=== PATIENT | female | born 1990 | race Caucasian/White ===

== ENCOUNTER → 2019-06-19 13:26 | Outpatient (CLI) | payer OTHER, SELFPAY ==
--- NOTE | ~2019-06-19 | XR_ITS ---
XR ankle LT min 3V DATE: 06/19/2019 13:46 INDICATION: Twisted left ankle with evening. Pain and swelling. TECHNIQUE: 4 views COMPARISON: None FINDINGS: Generalized soft tissue swelling. There is slight plantar calcaneal enthesopathy. No fracture or dislocation of the ankle or disruption of the ankle mortise. No periosteal reaction or bone destruction. IMPRESSION: Generalized soft tissue swelling; no fracture or dislocation Slight calcaneal enthesopathy Reviewed, dictated and finalized at location B. IAC REHABILITATION SPECIALIST
== END ==
PROVIDERS: PCP Family Medicine; Visit Provider Family Medicine
DX: S93.402A Sprain of unspecified ligament of left ankle, initial encounter (principal); X58.XXXA Exposure to other specified factors, initial encounter; M77.32 Calcaneal spur, left foot
CPT/HCPCS: 73610

== ENCOUNTER 2021-05-18 20:57 | Emergency (ER) | payer OTHER, SELFPAY ==
--- NOTE | ~2021-05-18 | XR_ITS ---
EXAMINATION: XR ankle LT min 3V DATE: 05/18/2021 21:55 INDICATION: Left ankle injury and swelling. TECHNIQUE: 4 views of left ankle were obtained. COMPARISON: Left ankle radiographs 06/19/2019 FINDINGS: Bone alignment is normal. There is a chip fracture of lateral process of talus. There are c hip fractures distal to the fibula. Joint spaces are well maintained. There are enthesophytes at the posterior and plantar aspects of calcaneal tuberosity. There is ankle soft tissue swelling. IMPRESSION: 1. Chip fractures of distal fibula and lateral process of talus. Reviewed, dictated and finalized at location A. MENT WELDER
--- NOTE | ~2021-05-18 | XR_ITS ---
EXAMINATION: XR knee LT 3V DATE: 05/18/2021 21:55 INDICATION: Left knee injury and pain and swelling. TECHNIQUE: 3 views of left knee were obtained. COMPARISON: None. FINDINGS: There is an avulsion fracture of inferior pole of patella with 2.9 cm distraction. There is mild osteoarthritis of medial compartment characterized by tiny marginal osteophyte. No knee joint e ffusion. IMPRESSION: 1. Avulsion fracture of inferior pole of patella with 2.9 cm distraction. Reviewed, dictated and finalized at location A. NER PELTS
[2021-05-18 21:11] VITALS: BP 111/66; PULSE 80; RESP 16; TEMP 36.6; O2SAT 100
--- NOTE | 2021-05-18 21:40 | PC.NURSE ---
xray in room.
[2021-05-18] MEDS: MORPHINE SULFATE (*CRX) 4 MG/ML INJ IV PUSH (22:08)
--- NOTE | 2021-05-18 22:14 | ED.LOWEXIN ---
HPI - Extremity Injury (Lower) General Chief Complaint: Extremity Injury, Lower Stated Complaint: LEFT KNEE DISLOCATION?? Time Seen by Provider: 05/18/21 21:40 History of Present Illness HPI Narrative: Patient is a 31-year-old female who presents ER with left knee and ankle injury. Patient was going to block a volleyball shot and jumped. When she jumped she felt a pop in her left knee. She then collapsed to the ground after landing. Did not strike her head or lose consciousness. Unable to bear weight due to pain and having a floppy leg . No numbness or tingling. Has swelling to the left ankle and knee. Related Data Allergies Allergy/AdvReac Type Severity Reaction Status Date / Time No Known Allergies Allergy Verified 05/18/21 21:18 Review of Systems Review of Systems: All systems reviewed & are unremarkable except as noted in HPI and below Gastrointestinal: Gastrointestinal: Denies abdominal pain, Denies nausea and Denies vomiting Musculoskeletal: Musculoskeletal: Reports arthralgias, Reports joint swelling and Denies muscle cramps Neurologic: Denies syncope, Denies headache(s), Denies focal weakness and Denies numbness PMFSH Past Medical History Medical History Pilonidal abscess Pilonidal cyst Surgical History Surgical History [place] teeth extracted Family History Family History Mother Diabetes mellitus Hypertension Grandparent Diabetes mellitus Carcinoma of colon Other Family history of bipolar disorder Family history of mental disorder Social History Social History Smoking status: Never smoker Alcohol intake: current Exam Narrative: GENERAL: Well-appearing, well-nourished, and in no acute distress. HEAD: Normocephalic, atraumatic. CHEST: Clear to auscultation. No respiratory distress. HEART: Regular rate and rhythm. Normal peripheral pulses. EXTREMITIES: Left lower extremity swelling and tenderness of the knee with high riding patella. Patella tendon not intact this patient cannot maintain a straight leg at the knee. Patient also has swelling over the lateral ankle with tenderness along the joint line the tip of the fibula. Normal dorsalis pedis pulse. Normal sensation. Unremarkable exam of other extremities. SKIN: Warm, dry, no rash. NEURO: Alert and oriented x3. PSYCH: Normal mood and affect. Course Course Emergency Course: Discussed with Dr. Landeros. Knee immobilizer and crutches for home, and does not recommend any immobilization for the ankle. Patient aware of diagnosis and treatment plan. She has received morphine for pain. She'll be given [place] for home. Vital Signs Vital signs: Vital Signs Temperature 98 F 05/18/21 21:11 Pulse Rate 80 05/18/21 21:11 Respiratory Rate 16 05/18/21 21:11 Blood Pressure 111/66 05/18/21 21:11 Pulse Oximetry 100 05/18/21 21:11 Temperature 98 F 05/18/21 21:11 Pulse Rate 80 05/18/21 21:11 Respiratory Rate 16 05/18/21 21:11 Blood Pressure 111/66 05/18/21 21:11 Pulse Oximetry 100 05/18/21 21:11 MDM - Extremity Injury (Lower) Imaging Data Radiologist's impression: ITS Impressions Ankle X-Ray 05/18/21 21:57 IMPRESSION: 1. Chip fractures of distal fibula and lateral process of talus. Knee X-Ray 05/18/21 21:59 IMPRESSION: 1. Avulsion fracture of inferior pole of patella with 2.9 cm distraction. Discharge Plan Discharge Clinical Impression: Patellar tendon rupture, Avulsion fracture of left ankle Patient Disposition: Home, Self-Care Condition: Stable Instructions: Ankle Fracture (ED), Tendon Rupture (ED) Additional Instructions: Return to the ER if your leg/ankle becomes cold/blue, you lose feeling in your lower extremity, you suffer additional injury
== END 2021-05-18 22:53 | disposition home or self-care (01) ==
PROVIDERS: Emergency Provider Emergency Medicine; PCP Family Medicine
DX: S92.152A Displaced avulsion fracture (chip fracture) of left talus, initial encounter for closed fracture (principal); S82.832A Other fracture of upper and lower end of left fibula, initial encounter for closed fracture; S82.092A Other fracture of left patella, initial encounter for closed fracture; X50.9XXA Other and unspecified overexertion or strenuous movements or postures, initial encounter; Y93.68 Activity, volleyball (beach) (court)
CPT/HCPCS: 73562; 73610; 96374; 99284; J2270

== ENCOUNTER → 2021-05-20 01:30 | Outpatient (CLI) | payer OTHER, SELFPAY ==
[2021-05-20 13:23] LABS: SARS-CoV-2 RNA PCR Negative
== END ==
PROVIDERS: PCP Family Medicine; Visit Provider Orthopaedic Surgery
DX: Z01.812 Encounter for preprocedural laboratory examination (principal); Z20.822 Contact with and (suspected) exposure to COVID-19
CPT/HCPCS: C9803; U0003; U0005

== ENCOUNTER 2021-05-21 01:43 | Day surgery (SDC) | payer OTHER, SELFPAY ==
[2021-05-20 08:09] VITALS: BMI 38.2
--- NOTE | 2021-05-20 08:28 | PC.NURSE ---
Report to the Outpatient Waiting Room, entrance under the green pavilion located off [facility], at time ____729___ on date __05/21/21 . OR Time: . - You and your visitor will be asked a series of questions to screen for COVID 19 for your protection. - A mask is required within the hospital. - Only one visitor is allowed at this time. Patient visitors will be guided where to wait when not with patient. Preoperative COVID Testing Requirements: No COVID Test needed if: (proof is required; if not received patient will have Rapid Test prior to entry) - Patient has received COVID Vaccine at least 14 days prior to procedure date or - Patient has positive COVID test result within last 90 days of surgery date. COVID Test needed if above criteria is not met COVID TEST 05/20/21929 If not COVID vaccinated a COVID test must be conducted within 72 hours of surgery and patient is asked to isolate self from time of testing until procedure. You will go to the [facility] for your COVID testing. The [facility] site is located at the corner of [address] [facility]. You will only be called if COVID results are positive and your surgeon may reschedule your elective surgery date. Patients may have clear liquids (water, carbonated beverages, clear teas, apple juice) until 3 hours prior to surgery with a maximum of 20 ounces. - No food from midnight until time of surgery - Infants may have breast milk until 4 hours before surgery, infant formula 6 hours prior to surgery. - Children will be allowed to drink immediately following surgery. If applicable, please bring a bottle or sippy cup to assist with drinking. Juice, water, soda, and popsicles are readily available. For infants on formula, please bring formula the day of surgery. Pacifiers are allowed. Take the following medications with a SIP of water the morning of surgery: HYDROCODONE NEEDED Medications to discontinue per physician NONE Date to take last dose Please no make-up, nail bulgarian, hairspray, perfume, deodorant, or body powder the day of surgery. No jewelry (including any body piercings) or valuables the day of surgery, leave them at home. Please take a shower or bath the night before, or the morning of, surgery with an antibacterial soap. Wear comfortable, loose fitting clothing. Children are encouraged to wear pajamas. - Jewelry must be removed prior to entering the operating room. Rings and piercings that are not removed may be cut off. - The hospital will not accept responsibility for valuables. - Please leave all valuables, including medications, at home the day of surgery. If you are going home after surgery, a licensed cattle driver must drive you home. - NO public transportation without another adult. - We recommend that an adult stay with you for 24 hours following discharge. - We also recommend that you do not drive, make important decision, drink alcoholic beverages, or take any drugs that were not prescribed by your health care provider for at least 24 hours after your discharge time. For Pediatric surgeries, we recommend two adults accompany the child home (only one inside the building at this time). Follow any additional instructions given to you from your surgeon. Telephone instructions given to ___PATIENT and asked if any additional questions and then verbalized understanding. Patient advised to call surgeon office or pre surgery nurse liaison [phone] if any additional questions.
[2021-05-21] VITALS (9 sets, daily range): BP systolic 101–121; BP diastolic 52–65; PULSE 53–70; RESP 13–22; TEMP 36.4; O2SAT 99–100
--- NOTE | 2021-05-21 07:17 | WPDHPUPDATE1 ---
History and Physical Update Update Date/Time: 05/21/21 07:17 History and Physical has been reviewed, including an updated exam of the patient. There are NO changes in the patient's condition. Risks, benefits, and alternatives have been discussed and questions answered. Patient agrees to proceed with procedure.
[2021-05-21] MEDS: ACETAMINOPHEN 500 MG TABLET 1000 MG PO (07:52)
--- NOTE | 2021-05-21 08:02 | P.PNAN_ITS ---
Anes - Initial Pre Proc Eval Procedure: Operation Date: 05/21/21 09:30 Proposed Procedures p Left Knee Patellar Tendon Reconstruction - Danny Landeros MD Date/Time: 05/21/21 08:02 Surgeon: Danny Landeros MD Pre Op Diagnosis: left knee patellar tendon rupture Patient Data Age: 31 Gender: F Height: 1.78 m Weight: 125.7 kg Last Vital Signs Temp 36.4 C L 05/21/21 07:58 Pulse 70 05/21/21 07:58 Resp 16 05/21/21 07:58 BP 121/64 05/21/21 07:58 Pulse Ox 99 05/21/21 07:58 Allergies Allergy/AdvReac Type Severity Reaction Status Date / Time No Known Allergies Allergy Verified 05/21/21 07:49 Home Medications Medication Instructions Recorded Confirmed Type diazepam 5 mg tablet 5 mg PO TID PRN #20 tablet 05/20/21 05/20/21 Rx ibuprofen 800 mg tablet 800 mg PO TID PRN #60 tablet 05/20/21 05/20/21 Rx ondansetron 8 mg disintegrating 8 mg PO Q6-8H PRN #10 tablet 05/20/21 05/20/21 Rx tablet oxycodone-acetaminophen 7.5 mg-325 1 tablet PO Q4H PRN #30 tablet 05/20/21 05/20/21 Rx mg tablet sennosides 8.6 mg-docusate sodium 1 tab-cap PO QHS #20 tablet 05/20/21 05/20/21 Rx 50 mg tablet Patient hx anesthesia problems: none Family hx anesthesia problems: none Results Review: All pre-operative results and documents have been reviewed as part of the pre-operative evaluation. [facility] Past Medical History Medical History Depression Pilonidal abscess Pilonidal cyst Surgical History Surgical History [place] teeth extracted Family History Family History Mother Diabetes mellitus Hypertension Grandparent Diabetes mellitus Carcinoma of colon Other Arthritis Depression Family history of bipolar disorder Family history of mental disorder Stomach cancer Social History Social History Smoking status: Never smoker Alcohol intake: current Substance use: never Substance use type: does not use Living arrangements: with family Additional living arrangements comments: [facility] 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[employer] Gender identity (if verbalized by the patient): Female Spiritual care concerns: No Anes - Eval Final PreProcedure Day of Procedure 05/21/21 08:02 Patient weight: obese Heart: regular rate and rhythm Lungs: clear to auscultation and normal air movement Airway: Mallampati scale class II Neurological: alert and oriented Last oral intake: >/= 8 hours ASA classification: II Emergent: no Anesthetic plan: proceed Anesthesia type and monitoring: general LMA Results Review: All pre-operative results and documents have been reviewed as part of the pre-operative evaluation. Informed Consent: The patient's anesthetic plan and its attendant risks and benefits were discussed with the patient/family/POA. Questions were solicited and answers provided to the satisfaction of the patient/family/POA.
[2021-05-21] MEDS: KETOROLAC 15 MG/ML VIAL (*BKC) IV PUSH (08:13)
[2021-05-21] MEDS: LACTATED RINGERS 1,000 ML 30 ML IV CONT ×2 (08:13→11:23)
--- NOTE | 2021-05-21 09:12 | WPDANESEFPP ---
Anes - Eval Final PreProcedure Day of Procedure 05/21/21 09:12 Patient weight: obese Heart: regular rate and rhythm Lungs: clear to auscultation Airway: Mallampati scale class II Neurological: alert and oriented Last oral intake: >/= 8 hours ASA classification: II Emergent: no Anesthetic plan: proceed Anesthesia type and monitoring: general LMA and standard monitoring Results Review: All pre-operative results and documents have been reviewed as part of the pre-operative evaluation. Informed Consent: The patient's anesthetic plan and its attendant risks and benefits were discussed with the patient/family/POA. Questions were solicited and answers provided to the satisfaction of the patient/family/POA.
[2021-05-21] MEDS: ceFAZolin 3 GM/D5W 100 ML 100 ML IVPB (09:28)
[2021-05-21] MEDS: BUPIVACAINE HCL 0.5% PF 30 ML VIAL INFILTRATE (10:00)
--- NOTE | 2021-05-21 11:30 | P.OP_ITS ---
Procedure Note - Detailed Date of Procedure 05/21/21 Pre-op Diagnosis left knee patellar tendon rupture Post-op Diagnosis same Procedure Performed Secondary reconstruction left knee patellar tendon Surgeon Danny Landeros MD Sports Editor 1st assistant professor of forestry Anesthesia general Indications 31-year-old woman injured left knee well playing volleyball. Radiographs and exam show patellar tendon rupture. Patient presents for operative treatment. Findings Complete rupture of the infrapatellar tendon with mild involvement of the medial and lateral retinaculum. Description of Procedure What was done: Patient identified in the preoperative holding. Informed consent given. Operative extremity marked. Patient received intravenous antibiotics. Patient brought to the operating room where underwent general anesthetic by anesthesia team. Positioned supine on operating room table. Time-out performed confirming the patient, site of the surgery and the plan. Left knee prepped and draped usual sterile surgical fashion using ChloraPrep skin solution. Knee exsanguinated and the thigh tourniquet inflated to 300 mmHg. Local anesthetic with 0.5% Marcaine plain. Direct midline anterior incision made with a 10 blade knife over the patellar tendon. Hemostasis controlled electrocautery. Fascia and retinaculum incised in line with skin incision. Complete rupture of the patellar tendon noted with disruption and fraying of the ligaments substance. Hematoma evacuated from the knee joint. Knee joint thoroughly irrigated. Repair of the patellar tendon then performed. Two 4.75 mm swivel lock anchors placed inferior patellar pole. This suture was then taken through ligament. Ligament repaired up to the patella. Suture limbs were then placed into a central swivel lock at the tibial tubercle. Two suture strands form the more medial anchor used. One suture strands from the lateral anchor to equal 6 strands of suture. Secondary repair was then performed with internal brace. A medial and lateral infrapatellar swivel lock was placed with the 4.75 mm. This suture was then taken through the retinaculum and repair distally to the tibia with a 4.75 mm swivel lock with the knee in 30? of flexion. Wound thoroughly irrigated and the tendon ends were approximated with 0 Vicryl interrupted suture. Fascia then repaired with 0 Vicryl interrupted suture. Subcutaneous tissue repaired with 2-0 Vicryl interrupted suture. Skin approximated with 3-0 Monocryl running subcuticular Quill stitch. Tourniquet released. Sterile dressing applied. The patient was then woken from anesthesia, extubated and taken to the recovery room in stable condition. All sponge, needle, instrument counts were correct at the end of the case. Implants Arthrex 4.75 mm swivel lock anchors x5 Estimated Blood Loss -20.0 Tourniquet Time 90 Drains No Packing No Pathology none sent Complications None Condition stable Disposition PACU
[2021-05-21] MEDS: fentaNYL CITRATE INJ (*CRX) 100 MCG/2 ML VIAL 25 MCG IV PUSH ×2 (11:40→12:04)
[2021-05-21] MEDS: oxyCODONE HCL (*CRX) 5 MG TAB IR PO (12:45)
== END 2021-05-21 13:55 | disposition home or self-care (01) ==
PROVIDERS: PCP Family Medicine; Visit Provider Orthopaedic Surgery
PROC: (CPT 27380; principal; 2021-05-21 09:30)
DX: S86.812A Strain of other muscle(s) and tendon(s) at lower leg level, left leg, initial encounter (principal); X50.0XXA Overexertion from strenuous movement or load, initial encounter; Y93.68 Activity, volleyball (beach) (court); F32.9 Major depressive disorder, single episode, unspecified; E66.9 Obesity, unspecified; Z68.39 Body mass index [BMI] 39.0-39.9, adult
CPT/HCPCS: 27381; A9270; C1713; C9803; J0690; J1100; J1885; J2250; J2405; J2704; J3010; J7120; U0003; U0005

== ENCOUNTER 2021-09-06 08:39 | Emergency (ER) | payer OTHER, SELFPAY ==
--- NOTE | 2021-09-06 08:42 | ED.URI ---
HPI - URI/Sore Throat General Chief Complaint: Upper Respiratory Infection Stated Complaint: sore throat Time Seen by Provider: 09/06/21 08:41 Source: patient Mode of arrival: ambulatory Limitations: no limitations History of Present Illness HPI Narrative: Ms. Bee is a 31-year-old female patient presenting to the clinic today with complaints of sore throat. She reports she has had sore throat for 1 to 2 days. She denies any known fever. Reports that her tonsils are very swollen with white exudate. She denies any nasal drainage or cough. MD elicited complaint: sore throat and nasal congestion Related Data Allergies Allergy/AdvReac Type Severity Reaction Status Date / Time No Known Allergies Allergy Verified 09/06/21 08:54 Review of Systems Review of Systems: Pertinent positives per HPI. Patient denies any fever, chills, rash, headache, visual changes, dizziness, cough, shortness of breath, chest pain, palpitations, nausea, vomiting, diarrhea, constipation, abdominal pain, or any urinary issues. [facility] Past Medical History Medical History Depression Encounter for postoperative care Pilonidal abscess Pilonidal cyst Surgical History Surgical History [place] teeth extracted Family History Family History Mother Diabetes mellitus Hypertension Grandparent Diabetes mellitus Carcinoma of colon Other Arthritis Depression Family history of bipolar disorder Family history of mental disorder Stomach cancer Social History Social History Alcohol intake: current Substance use: never Substance use type: does not use Additional living arrangements comments: [facility] 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 There is no relevant family history pertinent to the patient complaint. Exam Narrative: General: Well-developed, morbidly obese, in no apparent distress Head: Normocephalic, atraumatic Eyes: Pupils equally round and reactive to light bilaterally, EOM intact, sclera and conjunctive clear, no discharge, lids normal Ears: TMs intact and clear, ear canals clear, no drainage, grossly hearing normal. Nose: Nares patent, no discharge, no inflammation, no sinus tenderness. Mouth: Oral pharynx without lesions or masses, good dentition, MMM. 2+ tonsillar enlargement with white exudate Neck: Supple, trachea midline, positive enlargement of anterior cervical nodes, no thyroid masses or goiter palpable. Cardio: Regular rate and rhythm, s1 and s2 normal, no murmur appreciated. Resp: Clear to auscultation bilaterally, no rhonchi, rales, wheezing or rubs Course Course Emergency Course: Portions of this record may have been created with voice recognition software. Level of Care: Express Care Visit Vital Signs Vital signs: Vital signs reviewed MDM - URI/Sore Throat MDM Narrative Medical decision making narrative: At the time of visit patient is resting comfortably on the exam table. Strep screen was negative in the clinic. I will go ahead and treat her empirically for strep pharyngitis due to Centor criteria being 3 out of 4. Prescriptions for amoxicillin was sent to her pharmacy. Supportive measures were discussed with patient she voiced understanding of treatment plan and discharge instructions. Differential Diagnosis Differential diagnosis: Likely upper respiratory infection, croup, otitis media, sinusitis, viral infection, bronchitis, influenza and pharyngitis Discharge Plan Discharge Clinical Impression: Exudativ
[2021-09-06 08:46] VITALS: BP 129/75; PULSE 75; RESP 16; TEMP 36.5; O2SAT 99
== END 2021-09-06 09:10 | disposition home or self-care (01) ==
PROVIDERS: Emergency Provider Nurse Practitioner Family; PCP Family Medicine
DX: J02.9 Acute pharyngitis, unspecified (principal)
CPT/HCPCS: 87081; 87880; 99213; G0463

== ENCOUNTER 2022-04-27 08:13 | Emergency (ER) | payer OTHER, SELFPAY ==
[2022-04-27 08:29] VITALS: BP 127/81; PULSE 85; RESP 16; TEMP 36.1; O2SAT 99
--- NOTE | 2022-04-27 08:48 | ED.URI ---
HPI - URI/Sore Throat General Chief Complaint: Upper Respiratory Infection Stated Complaint: Stiff neck Time Seen by Provider: 04/27/22 08:40 History of Present Illness HPI Narrative: 32-year-old female presented for complaint neck pain for 6 days associated headache. She also endorses mild throat pain. She endorses having a history of strep infections but states this does not feel quite as bad. She denies nausea, vomiting, dizziness, tinnitus, fevers or chills. She denies extremity weakness, numbness or tingling. She has taken Tylenol and ibuprofen without significant change. She denies injury to her neck. Denies sick contacts. Related Data Allergies Allergy/AdvReac Type Severity Reaction Status Date / Time No Known Allergies Allergy Verified 04/27/22 08:38 Review of Systems Review of Systems: CONSTITUTIONAL: Denies body aches, fever, chills, or sweats. EYES: Denies visual changes, redness, or discharge. ENT: Denies rhinorrhea, congestion, or otalgia. CARDIOVASCULAR: Denies chest pain, palpitations, or edema. RESPIRATORY: Denies dyspnea. GASTROINTESTINAL: Denies abdominal pain, nausea, vomiting, or diarrhea. SKIN: Denies rash, itching, or wounds. MUSCULOSKELETAL: Denies back pain, joint pain, or myalgia. NEUROLOGIC: Denies headache PMFSH Past Medical History Medical History Depression Encounter for postoperative care Pilonidal abscess Pilonidal cyst Surgical History Surgical History [place] teeth extracted Family History Family History Mother Diabetes mellitus Hypertension Grandparent Diabetes mellitus Carcinoma of colon Other Arthritis Depression Family history of bipolar disorder Family history of mental disorder Stomach cancer Social History Social History Smoking status: Never smoker Alcohol intake: current Substance use: never Substance use type: does not use Additional living arrangements comments: [facility] [place] 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 EYES: conjunctivae clear ENT: Mucous membranes moist. TMs pearly bynum with normal light reflex bilaterally; no tragal tenderness. Oropharynx erythematous Tonsils enlarged 2+ without exudate. No drooling, no hoarseness, no trismus, uvula midline. No tripod positioning, hot potato voice, or soft palate swelling. NECK: Supple. No lymphadenopathy; Decreased ROM in all directions, no VPT. CHEST: Clear to auscultation, breath sounds equal. No respiratory distress, speaks in full sentences. HEART: Regular rate and rhythm. No murmur heard. SKIN: Warm, dry, no rash. MUSC: full ROM to upper extremities. NEURO: Alert and oriented x3. Course Course Emergency Course: Patient is aware of diagnosis, understands and agrees to treatment plan. Anticipatory guidance given. Patient agrees to follow-up as directed and is aware of reasons to seek care at the emergency department. Portions of this record may have been created with voice recognition software Level of Care: Express Care Visit Vital Signs Vital signs: Vital Signs Temperature 97.0 F L 04/27/22 08:29 Pulse Rate 85 04/27/22 08:29 Respiratory Rate 16 04/27/22 08:29 Blood Pressure 127/81 04/27/22 08:29 Pulse Oximetry 99 04/27/22 08:29 Oxygen Delivery Room Air 04/27/22 08:29 Temperature 97.0 F L 04/27/22 08:29 Pulse Rate 85 04/27/22 08:29 Respiratory Rate 16 04/27/22 08:29 Blood Pressure 127/81 04/27/22 08:29 Pulse Oximetry 99 04/27/22 08:29 Oxygen Delivery Room Air 04/27/22 08:29 MDM - URI/Sore Throat MDM Narrative Medical dec
== END 2022-04-27 09:02 | disposition home or self-care (01) ==
PROVIDERS: Emergency Provider Nurse Practitioner Family; PCP Family Medicine
DX: M54.2 Cervicalgia (principal); J02.9 Acute pharyngitis, unspecified
CPT/HCPCS: 87081; 99213; G0463

== ENCOUNTER 2024-04-25 01:54 | Emergency (ER) | payer OTHER, SELFPAY ==
--- NOTE | ~2024-04-25 | XR_ITS ---
EXAMINATION: XR chest 2V DATE: 04/25/2024 03:19 INDICATION: Cough. TECHNIQUE: Frontal and lateral views of the chest were obtained. COMPARISON: None. FINDINGS: There is no pneumonia, pleural effusion, or pneumothorax. The heart size is normal. IMPRESSION: 1. No acute cardiopulmonary disease. Reviewed, dictated and finalized at location A. [facility]
[2024-04-25 01:55] VITALS: BP 133/78; PULSE 75; RESP 16; TEMP 36.4; O2SAT 98
[2024-04-25] MEDS: SODIUM CHLORIDE 0.9% IV 1,000 ML 999 ML IV CONT (03:30)
--- NOTE | 2024-04-25 03:37 | ED_ITS ---
HPI - General Adult General Chief complaint: Upper Respiratory Infection Stated complaint: pneumonia-been coughing three weeks Time Seen by Provider: 04/25/24 03:04 Source: patient Mode of arrival: ambulatory Limitations: no limitations History of Present Illness HPI narrative: Pt is a 34 yo female presenting for evaluation of cough. Pt reports a five day history of dry cough without improvement with over the counter medications. She denies chest pain. No recent sick contacts. Patient reports achiness and myalgias on Tuesday with fever 102F, but afebrile since that time. She denies chest pain, pleuritic pain, dyspnea. Patient without history of asthma, does have a history of bronchitis. She denies headache, sore throat. Reports mild congestion. No sinus pain per patient. Related Data Allergies Allergy/AdvReac Type Severity Reaction Status Date / Time No Known Allergies Allergy Verified 07/15/22 10:00 Review of Systems 2 Constitutional: Constitutional: Reports as per [facility] Past Medical History Medical History Encounter for postoperative care Depression Pilonidal cyst Pilonidal abscess Surgical History Surgical History [place] teeth extracted Family History Family History Mother Diabetes mellitus Hypertension Grandparent Diabetes mellitus Carcinoma of colon Other Arthritis Depression Family history of bipolar disorder Family history of mental disorder Stomach cancer Social History Social History Smoking status: Never smoker Alcohol intake: current Substance use: never Substance use type: does not use Living arrangements: with family Additional living arrangements comments: [facility] Occupation/Education: occupation 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 [employer] Gender identity (if verbalized by the patient): Female Spiritual care concerns: No Exam 2 Const: General: healthy appearing and no acute distress Nutritional Appearance: well nourished Orientation/consciousness: patient oriented x3 Limitations: no limitations HENMT: Head: normal to inspection Face/Nose/Sinus: Normal external nose present Mouth: Yes Normal oral and palatal mucosa present Eyes: Conjunctivae: conjunctivae normal Pupils: Equal, round and reactive pupils present Neck: Neck: normal visual inspection Chest: Chest palpation & inspection: normal inspection of the chest Resp: Effort & Inspection: normal respiratory effort Auscultation: clear to auscultation bilaterally Other: No wheezing, rhonchi or rales Cardio: Rate: regular rate Rhythm: regular rhythm GI: GI Palp: Yes Soft to palpation Skin: General skin exam: normal color Rashes: no rashes Neuro: General: patient oriented x3 Extrem: General: normal to inspection Psych: Mental Status: mental status grossly normal Affect: normal affect Course Vital Signs Vital signs: Vital Signs Temperature 36.4 C L 04/25/24 01:55 Pulse Rate 75 04/25/24 01:55 Respiratory Rate 16 04/25/24 01:55 Blood Pressure 133/78 04/25/24 01:55 Pulse Oximetry 98 04/25/24 01:55 Temperature 36.4 C L 04/25/24 01:55 Pulse Rate 75 04/25/24 01:55 Respiratory Rate 16 04/25/24 01:55 Blood Pressure 133/78 04/25/24 01:55 Pulse Oximetry 98 04/25/24 01:55 Medical Decision Making MDM Narrative Medical decision making narrative: Patient with CXR that is concerning for patchy infiltration, no consolidation with concern for atypical pneumonia or viral URI. Given high rates of mycoplasma, plan to treat with doxycyline as pt with medication interaction for azithromycin. Other labs reassuring as well as vital signs. Pt then discharged home. Differential Diagnosis Differential Diagnosis: Pneumonia, Viral infection, Atypical pneumonia Vital Signs Vital Signs: Vital Signs Temperature 36.4 C L 04/25/24 01:55 Pulse Rate 75 04/25/24 01:55 Respiratory Rate 16 04/25/24 01:55 Blood Pressure 133/78 04/25/24 01:55 Pulse Oximetry 98 04/25/24 01:55 Temperature 36.4 C L 04/25/24 01:55 Pulse Rate 75 04/25/24 01:55 Respiratory Rate 16 04/25/24 01:55 Blood Pressure 133/78 04/25/24 01:55 Pulse Oximetry 98 04/25/24 01:55 Lab Data Lab results reviewed: Yes I reviewed the patient's lab results. 04/25/24 03:32 04/25/24 03:32 Labs: Lab Results 04/25/24 Range/Units 03:32 WBC 7.3 (4.5-10.0) K/mm3 RBC 5.02 (4.2-5.4) M/mm3 Hgb 13.7 (12.0-15.0) g/dL Hct 40.9 (37.0-47.0) % MCV 81.5 (80-100) fl MCH 27.3 (26-34) pg MCHC 33.5 (32-36) g/dl RDW 12.5 (11.5-14.5) % Plt Count 293 (150-375) k/mm3 MPV 9.3 (7.4-10.4) fl Immature Gran % (Auto) 0.4 (0-0.5) % Neut % (Auto) 48.4 (45.5-73.1) % Lymph % (Auto) 39.3 (18.3-44.2) % [place] % (Auto) 10.7 H (2.6-8.5) % Eos % (Auto) 0.6 (0-4.4) % Baso % (Auto) 0.6 (0.2-1.2) % Lymph # (Auto) 2.86 (0.9-3.2) K/mm3 [place] # (Auto) 0.8 H (0.1-0.6) K/mm3 Eos # (Auto) 0.0 (0-0.3) K/mm3 Baso # (Auto) 0.0 (0.0-0.1) K/mm3 Abs Immat Gran (auto) 0.03 (0.00-0.031) K/mm3 Absolute Neuts (auto) 3.5 (1.3-6.7) K/mm3 Absolute Nucleated RBC 0.000 (0.0-0.012) K/mm3 Nucleated RBC % 0.0 (0.0-0.2) % Sodium 139 (137-145) mmol/L Potassium 3.6 (3.4-5.0) mmol/L Chloride 107 (98-107) mmol/L Carbon Dioxide 25 (22-30) mmol/L Anion Gap 7 (4-12) mmol/L BUN 8 (7-17) mg/dL Creatinine 0.70 (0.7-1.0) mg/dL Estim Creat Clear Calc 137 ml/min Estimated GFR > 60 (59 - ) Glucose 112 H (65-110) mg/dL Calcium 9.2 (8.4-10.2) mg/dL Total Bilirubin 0.3 (0.2-1.3) mg/dL AST 34 (14-36) U/L ALT 27 (6-35) U/L Alkaline Phosphatase 82 (38-126) U/L Troponin I < 0.012 (0.000-0.034) ng/mL Total Protein 8.0 (6.3-8.2) g/dL Albumin 4.4 (3.5-5.1) g/dL ECG Data EKG #1: Attestation: I personally reviewed and interpreted this ECG as follows: ECG completion date: 04/25/24 ECG completion time: 04:17 Interpretation: Rate 61, normal sinus rhythm, ID interval normal. QS narrow, QTc normal EKG Interpretation: normal rate Discharge Plan Discharge Clinical Impression: Atypical pneumonia, Cough Patient Disposition: Home, Self-Care Condition: Stable Instructions: Pneumonia (ED) Additional Instructions: Your chest x ray was reassuring, but due to high rates of atypical pneumonia, this will be treated with oral antibiotics. Please take in full and do not miss any doses. Your other lab work was normal. Please follow up with your PCP in 10 days if no improvement. Patient Language: Bengali Prescriptions: New acetaminophen 500 mg capsule 500 mg PO Q6H PRN (Reason: fever or pain) Qty: 30 0RF doxycycline hyclate 100 mg capsule 100 mg PO Q12H 10 Days Qty: 20 0RF No Action escitalopram oxalate 10 mg tablet See Rx Instructions PO DAILY Qty: 60 3RF Rx Instructions: orally daily; start 1 q day x 2 weeks then increase to 2 q day Follow-up/Referrals: Sanjuana Butts MD [Primary Care Provider] -
[2024-04-25 03:40] LABS: Basophils Percent Auto 0.6 % (0.2-1.2); Eosinophils Percent Auto 0.6 % (0-4.4); Hematocrit 40.9 % (37.0-47.0); Hemoglobin 13.7 g/dL (12.0-15.0); Immature Granulocyte Absolute 0.03 K/mm3 (0.00-0.031); Immature Granulocyte Percent A 0.4 % (0-0.5); Lymphocytes Absolute Auto 2.86 K/mm3 (0.9-3.2); Lymphocytes Percent Auto 39.3 % (18.3-44.2); Mean Corpuscular HGB Conc 33.5 g/dl (32-36); Mean Corpuscular Hemoglobin 27.3 pg (26-34); Mean Corpuscular Volume 81.5 fl (80-100); Mean Platelet Volume 9.3 fl (7.4-10.4); Monocytes Absolute Auto 0.8 K/mm3 (0.1-0.6); Monocytes Percent Auto 10.7 % (2.6-8.5); Neutrophils Absolute Auto 3.5 K/mm3 (1.3-6.7); Neutrophils Percent Auto 48.4 % (45.5-73.1); Platelet Count Result 293 k/mm3 (150-375); Red Blood Count 5.02 M/mm3 (4.2-5.4); Red Cell Distribution Width 12.5 % (11.5-14.5); White Blood Count 7.3 K/mm3 (4.5-10.0)
[2024-04-25] MEDS: ACETAMINOPHEN 500 MG TABLET 1000 MG PO (03:46)
[2024-04-25] MEDS: AZITHROMYCIN 250 MG TABLET 500 MG PO (03:47)
[2024-04-25] MEDS: predniSONE 20 MG TABLET 60 MG PO (03:48)
[2024-04-25 03:54] LABS: Alanine Aminotransferase 27 U/L (6-35); Albumin Level 4.4 g/dL (3.5-5.1); Alkaline Phosphatase 82 U/L (38-126); Anion Gap 7 mmol/L (4-12); Aspartate Amino Transferase 34 U/L (14-36); Bilirubin,Total 0.3 mg/dL (0.2-1.3); Blood Urea Nitrogen 8 mg/dL (7-17); Calcium 9.2 mg/dL (8.4-10.2); Carbon Dioxide 25 mmol/L (22-30); Chloride 107 mmol/L (98-107); Estimated CRCL calculation 137 ml/min; Estimated Glomerular Filt Rate > 60; Glucose 112 mg/dL (65-110); Potassium 3.6 mmol/L (3.4-5.0); Sodium 139 mmol/L (137-145)
--- NOTE | 2024-04-25 03:59 | ECG_ITS ---
Test Date: 2024-04-25 04:17:31 Measurements Intervals [place] Rate: 61 P: 48 OK: 146 QRS: 53 QRSD: 102 T: 9 QT: 429 QTc: 434 Interpretive Statements SINUS RHYTHM No previous ECG available for comparison Electronically Signed On 04-25-2024 13:40:40 OCCUPATIONAL THERAPY ASSIST by Tatiana Bah M.D.
[2024-04-25 04:23] LABS: Troponin I < 0.012 ng/mL (0.000-0.034)
[2024-04-25 04:30] LABS: Influenza A QL RT-PCR Positive (Negative); Influenza B QL RT-PCR Negative (Negative); SARS-CoV-2 RNA PCR Negative (Negative)
[2024-04-25 05:14] VITALS: BP 124/86; PULSE 74; RESP 17; O2SAT 99
--- OUTSIDE RECORDS SUMMARY | 2024-05-02 02:51 | XMS_ITS | Patient Health Summary ---
Author Organization [facility] Address [address] [place] [address] Care Team Providers Care Pharmacy Salesperson Name Role Phone Unavailable Primary Care Provider Unavailabl e Note from [facility],non-owned Affiliates and Associated Physician Practices is amultiple site organization consisting of ambulatory clinics and hospital sitesin [place], [place], [place] and [place]. This disclosure is being madepursuant to the Care Everywhere program and may not contain all information available regarding this patient. Last updated 18.[facility] [employer] Social History Tobacco Use Types Packs/Day Years Used Date Smoking Tobacco: Never Assessed Sex and Gender Information Value Date Recorded Sex Assigned at Not on file Gender Identity Not on file Sexual Orientation Not on file
--- OUTSIDE RECORDS SUMMARY | 2024-05-02 02:51 | XMS_ITS | Clinical Summary ---
Author Organization [facility] Address [address] [place] [address] Care Team Providers Care Video Game Animator Name Role Phone Unavailable Primary Care Provider Unavailabl e Source Comments [facility],non-owned Affiliates and Associated Physician Practices is amultiple site organization consisting of ambulatory clinics and hospital sitesin [place], [place], [place] and [place]. This disclosure is being madepursuant to the Care Everywhere program and may not contain all information available regarding this patient. Last updated 18.[facility] [employer] Social History Tobacco Use Types Packs/Day Years Used Date Smoking Tobacco: Never Assessed Sex and Gender Information Value Date Recorded Sex Assigned at Not on file Gender Identity Not on file Sexual Orientation Not on file Plan of Treatment Health Maintenance Due Date Last Done Comments PAP SMEAR 1988 HIV SCREENING 2003 HEPATITIS C SCREENING 03/08/2006 DTAP/TDAP/TD VACCINES (1 - Tdap) 2007 HEPATITIS B VACCINE (1 of 3 - 19+ 3-dose series) 2007 DEPRESSION SCREENING 05/02/2023 COVID-19 VACCINE (1 - 2023-2 5 season) 2024 INFLUENZA VACCINE (#1) 2024 ZOSTER VACCINE (1 of 2) 2038 HIB VACCINE Aged Out No longer eligi ble based on patient's age to complete this topic HPV VACCINE Aged Out No longer eligi ble based on patient's age to complete this topic MENINGOCOCCAL VACCINE Aged Out No aundrea morris eligible based on patient's age to complete this topic PNEUMOCOCCAL VACCINE Aged Out No long er eligible based on patient's age to complete this topic
--- OUTSIDE RECORDS SUMMARY | 2024-05-02 02:51 | XMS_ITS | Encounter Summary ---
Author Organization [facility] Address [address] [place] [address] Care Team Providers Care Rubber Off Name Role Phone Unavailable Primary Care Provider Unavailabl e Encounter Details Date Type Department Care Team (Latest Contact Info) Description 12/12/2020 Travel Social History Tobacco Use Types Packs/Day Years Used Date Smoking Tobacco: Never Assessed Sex and Gender Information Value Date Recorded Sex Assigned at Not on file Gender Identity Not on file Sexual Orientation Not on file COVID-19 Exposure Response Date Recorded In the last month, have you been in contact with someone who was confirmed or suspected to have Coronavirus / COVID-19? No / Unsure 12/12/2020 1:43 PM CDT documented as of this encounter Plan of Treatment Not on file documented as of this encounter Visit Diagnoses Not on filedocumented in this encounter
--- OUTSIDE RECORDS SUMMARY | 2024-05-02 02:51 | XMS_ITS | Referral Summary ---
Author Organization [facility] Address [address] [place] [address] Care Team Providers Care Aquatics Manager Name Role Phone Unavailable Primary Care Provider Unavailabl e Source Comments [facility],non-owned Affiliates and Associated Physician Practices is amultiple site organization consisting of ambulatory clinics and hospital sitesin [place], [place], [place] and [place]. This disclosure is being madepursuant to the Care Everywhere program and may not contain all information available regarding this patient. Last updated 18.[facility] [employer] Social History Tobacco Use Types Packs/Day Years Used Date Smoking Tobacco: Never Assessed Sex and Gender Information Value Date Recorded Sex Assigned at Not on file Gender Identity Not on file Sexual Orientation Not on file Plan of Treatment Not on file
--- OUTSIDE RECORDS SUMMARY | 2024-05-02 03:35 | XMS_ITS | Encounter Summary ---
Author Organization [facility] Address [address] [place] [address] Care Team Providers Care Hand Blocker Name Role Phone Unavailable Primary Care Provider [...]
--- OUTSIDE RECORDS SUMMARY | 2024-05-02 03:35 | XMS_ITS | Clinical Summary ---
Author Organization [facility] Address [address] [place] [address] Care Team Providers Care Creative Services Coordinator Name Role Phone Unavailable Primary Care Provider Unavailabl e Source Comments [facility],non-owned Affiliates and Associated Physician Practices is amultiple site organization consisting of ambulatory clinics and hospital sitesin [place], [place], [place] and [place]. This disclosure is being madepursuant to the Care Everywhere program and may not contain all information available regarding this patient. Last updated 18.[facility] [employer] Social History Tobacco Use Types Packs/Day Years [...]
--- OUTSIDE RECORDS SUMMARY | 2024-05-02 03:35 | XMS_ITS | Patient Health Summary ---
Author Organization [facility] Address [address] [place] [address] Care Team Providers Care Campus Coordinator Name Role Phone Unavailable Primary Care Provider Unavailabl e Note from [facility],non-owned Affiliates and Associated Physician Practices is amultiple site organization consisting of ambulatory clinics and hospital sitesin [place], [place], [place] and [place]. This disclosure is being madepursuant to the Care Everywhere program and may not contain all information available regarding this patient. Last updated 18.[facility] [employer] Social History Tobacco Use Types Packs/Day Years Used Date Smoking Tobacco: Never Assessed Sex and Gender Information Value Date Recorded Sex Assigned at Not on file Gender Identity Not on file Sexual Orientation Not on file
--- OUTSIDE RECORDS SUMMARY | 2024-05-02 03:35 | XMS_ITS | Referral Summary ---
Author Organization [facility] Address [address] [place] [address] Care Team Providers Care Clinical Trial Specialist Name Role Phone Unavailable Primary Care Provider Unavailabl e Source Comments [facility],non-owned Affiliates and Associated Physician Practices is amultiple site organization consisting of ambulatory clinics and hospital sitesin [place], [place], [place] and [place]. This disclosure is being madepursuant to the Care Everywhere program and may not contain all information available regarding this patient. Last updated 18.[facility] [email or web address] Social History Tobacco Use Types Packs/Day Years Used Date Smoking Tobacco: Never Assessed Sex and Gender Information Value Date Recorded Sex Assigned at Not on file Gender Identity Not on file Sexual Orientation Not on file Plan of Treatment Not on file
== END 2024-04-25 05:15 | disposition home or self-care (01) ==
PROVIDERS: Emergency Provider Emergency Medicine; PCP Family Medicine
DX: J18.9 Pneumonia, unspecified organism (principal); R05.9 Cough, unspecified; F32.A Depression, unspecified
CPT/HCPCS: 36415; 71046; 80053; 84484; 85025; 87636; 93005; 96360; 99284; A9270; J7030; J7512